=== PATIENT | male | born 1960 ===

== ENCOUNTER 2018-03-26 09:00 | Inpatient (IN) | payer OTHER ==
[~2018-03-26] VITALS: Ht 172.7 cm; Wt 104.3 kg
[2018-03-26] MEDS ORDERED: FORTAMET1000 MG PO (09:46)
[2018-03-26] MEDS ORDERED: NOVOLOG100 UNIT/1 (09:47)
[2018-03-26] MEDS ORDERED: LANTUS (09:48)
[2018-03-26] MEDS ORDERED: OMEPRAZOLE20 MG PO (09:49)
[2018-03-26] MEDS ORDERED: HYDRALAZINE HCL25 MG PO (09:49)
[2018-03-26] MEDS ORDERED: [UNRECOGNIZED DRUG - OTHER] PO (09:50)
[2018-03-26] MEDS ORDERED: AVAPRO300 MG PO (09:50)
[2018-03-26] MEDS ORDERED: SYNTHROID88 MCG PO (09:51)
[2018-03-26] MEDS ORDERED: NEPHRONEX-SL T1 EACH PO (09:51)
[2018-03-26] MEDS ORDERED: METOPROLOL PO (09:52)
== END 2018-04-05 16:11 | disposition home or self-care (01) | DRG 331 ==
LOC: O/R 04-02 06:11 → SURH 04-02 09:00 → SURG 04-02 14:05
PROVIDERS: Colon & Rectal Surgery
PROC: 07TC4ZZ Resection of Pelvis Lymphatic, Percutaneous Endoscopic Approach (ICD-10-PCS; 2018-04-02)
PROC: 0DJD8ZZ Inspection of Lower Intestinal Tract, Via Natural or Artificial Opening Endoscopic (ICD-10-PCS; 2018-04-02)
PROC: 4A12X4Z Monitoring of Cardiac Electrical Activity, External Approach (ICD-10-PCS; 2018-04-02)
PROC: 4A033R1 Measurement of Arterial Saturation, Peripheral, Percutaneous Approach (ICD-10-PCS; 2018-04-02)
PROC: 0DTN4ZZ Resection of Sigmoid Colon, Percutaneous Endoscopic Approach (ICD-10-PCS; principal; 2018-04-02 10:15)
DX: C19 Malignant neoplasm of rectosigmoid junction (principal); D12.7 Benign neoplasm of rectosigmoid junction; I11.9 Hypertensive heart disease without heart failure; E03.8 Other specified hypothyroidism; G47.33 Obstructive sleep apnea (adult) (pediatric); E66.01 Morbid (severe) obesity due to excess calories; E10.9 Type 1 diabetes mellitus without complications

== ENCOUNTER 2018-05-29 05:43 | Day surgery (SDC) | payer OTHER ==
[~2018-05-29 05:43] MED LIST: AVALIDE PO; AVAPRO300 MG PO; FORTAMET1000 MG PO; HYDRALAZINE HCL25 MG PO; LANTUS; METOPROLOL PO; NEPHRONEX-SL T1 EACH PO; NOVOLOG100 UNIT/1; OMEPRAZOLE20 MG PO; SYNTHROID88 MCG PO; [UNRECOGNIZED DRUG - OTHER] PO
== END 2018-05-29 09:30 | disposition home or self-care (01) ==
LOC: CIR.AMB 05:43
DX: C19 Malignant neoplasm of rectosigmoid junction (principal)
CPT/HCPCS: 36561; C1751

== ENCOUNTER 2018-05-30 12:47 | Outpatient (CLI) | payer OTHER | END 2018-05-30 12:58 | disposition home or self-care (01) | LOC: RAD 12:47 | DX: M12.861 Other specific arthropathies, not elsewhere classified, right knee (principal); M17.11 Unilateral primary osteoarthritis, right knee ==

== ENCOUNTER 2018-11-05 09:39 | Outpatient (CLI) | payer OTHER | END 2018-11-05 10:00 | disposition home or self-care (01) | LOC: NUCLEAR 09:39 | DX: C18.9 Malignant neoplasm of colon, unspecified (principal) | CPT/HCPCS: 78816; A9552 ==

== ENCOUNTER 2022-10-11 05:35 | Day surgery (SDC) | payer OTHER ==
[~2022-10-11 05:35] MED LIST changes: +ALDACTONE25 MG PO; +ATACAND32 MG PO; +ATORVASTATIN CA40 MG PO; +CHLORTHALIDONE50 MG PO; +GLUMETZA1000 MG PO; +HUMULIN 70100 UNIT/1; +HYDRALAZINE HC100 MG PO; +SYNTHROID100 MCG PO; +TERAZOSIN HCL1 M1 PO; +TOPROL XL100 M1 PO; +VITAMIN D3 PO
== END 2022-10-11 11:50 | disposition home or self-care (01) ==
LOC: CIR.AMB 05:35
PROVIDERS: ATTEND Colon & Rectal Surgery
DX: C19 Malignant neoplasm of rectosigmoid junction (principal); I10 Essential (primary) hypertension; E03.9 Hypothyroidism, unspecified; E11.40 Type 2 diabetes mellitus with diabetic neuropathy, unspecified; Z79.84 Long term (current) use of oral hypoglycemic drugs; E66.09 Other obesity due to excess calories